=== PATIENT | male | born 1960 | race Caucasian/White ===

== ENCOUNTER 2016-10-28 14:24 | Emergency (ER) | payer SELFPAY ==
--- NOTE | 2016-10-28 15:16 | RAD ---
LEFT THUMB 3 VIEWS HISTORY: Tablesaw injury of the left thumb. COMPARISONS: None. TECHNIQUE: Frontal, lateral, and oblique views of the left thumb. ALIGNMENT: Grossly unremarkable. FRACTURE: No displaced acute fracture. SOFT TISSUES: Soft tissue defect of the distal stomach compatible with history of laceration. DEGENERATIVE CHANGE: Minor degeneration of the first and second metacarpophalangeal joints. RADIOOPAQUE FOREIGN BODY: None. IMPRESSION: Evidence of laceration of the left thumb without associated radiopaque foreign body or fracture.
== END 2016-10-28 16:36 | disposition home or self-care (01) ==
LOC: ED 14:24
DX: S61.012A Laceration without foreign body of left thumb without damage to nail, initial encounter (principal); W29.8XXA Contact with other powered hand tools and household machinery, initial encounter; Y93.89 Activity, other specified; Y92.009 Unspecified place in unspecified non-institutional (private) residence as the place of occurrence of the external cause; Y99.8 Other external cause status; I48.91 Unspecified atrial fibrillation; Z79.899 Other long term (current) drug therapy; Z91.040 Latex allergy status